=== PATIENT | female | born 1940 | race Caucasian/White ===

== ENCOUNTER → 2016-06-11 | Outpatient (CLI) | payer MEDICARE, OTHER ==
--- NOTE | 2016-06-12 08:01 | US ---
Study: Arterial doppler sonogram of the bilateral lower extremities. Indication: PAD Technique: Sonographic evaluation of the bilateral lower extremity arteries performed. Findings: Arterial waveforms are multiphasic throughout the bilateral lower extremity arteries with the exception of the bilateral dorsalis pedis arteries which are monophasic. No occluded segments. No elevated peak systolic flow velocities. Scattered mild obstructive disease. Impression: Scattered atherosclerosis disease bilateral lower arteries with monophasic dampened waveforms in the bilateral dorsalis pedis arteries. Electronically signed by: Gray Reeves MD 06/12/2016 8:00 AM [employer]
== END ==
LOC: RAD 15:13
PROVIDERS: ATTEND Family Medicine
DX: I73.9 Peripheral vascular disease, unspecified (principal); D51.3 Other dietary vitamin B12 deficiency anemia; E55.9 Vitamin D deficiency, unspecified

== ENCOUNTER 2016-09-07 00:09 | Observation (INO) | payer MEDICARE, OTHER ==
[2016-09-07] MEDS ORDERED: SODIUM CHLORIDE 0.9% 1000ML 1,000 ML IVS ONE ×2 (00:15→01:06)
--- NOTE | 2016-09-07 00:17 | ED.PDOC ---
History of Present Illness - General Chief Complaint: Syncope/Near Syncope Stated Complaint: Diarrhea and syncope Time Seen by Provider: 09/07/16 00:13 Source: patient, RN notes reviewed, Vital Signs reviewed Additional Information: Diarrhea x several days. When trying to get up from toilet she became dizzy and passed out, injuring her R ankle. EMS called to assess patient. Patient initially wanted to refuse care but when she was stood up she became syncopal and improved only with supine positioning and IV fluids. Pt in mild distress on presentation to ER due to right ankle fracture. Otherwise the only significant finding was a pale complexion and flat affect. - History of Present Illness Precipitating Factors: lightheadedness Context: standing Loss of Consciousness: brief (seconds) Current Symptoms: back to normal Allergies/Adverse Reactions: Allergies Diazepam [From Valium] Allergy (Verified 09/07/16 00:53) Home Medications: Ambulatory Orders Alprazolam [Alprazolam ER] 1 mg PO BEDTIME 11/12/14 Esomeprazole Magnesium [Nexium] 40 mg PO DAILY 11/12/14 Fluoxetine HCl [Prozac] 60 mg PO DAILY 11/12/14 Alprazolam [Alprazolam ER] 0.5 mg PO DAILY 09/07/16 Probiotic Product [Probiotic] 1 tab PO DAILY 09/07/16 tiZANidine [Zanaflex] 8 mg PO BEDTIME 09/07/16 traZODone HCL [Desyrel] 50 mg PO BEDTIME 09/07/16 Review of Systems - Review of Systems Constitutional: States: see HPI, weakness EENTM: States: no symptoms reported Respiratory: States: no symptoms reported Cardiology: States: no symptoms reported Gastrointestinal/Abdominal: States: no symptoms reported Genitourinary: States: no symptoms reported Musculoskeletal: States: see HPI, joint pain, joint swelling Skin: States: no symptoms reported Neurological: States: see HPI Endocrine: States: no symptoms reported Hematologic/Lymphatic: States: no symptoms reported Past Medical History (General) - Patient Medical History Hx Stroke: No Hx Congestive Heart Failure: No Hx Diabetes: No Hx Gastroesophageal Reflux: Yes - Hiatal hernia Hx Cancer: Yes - R breast Hx MRSA: No - Vaccination History Hx Influenza Vaccination: No Hx Pneumococcal Vaccination: Yes - 2013 - Social History Hx Tobacco Use: No Hx Alcohol Use: Yes - wine, on occassion. Hx Substance Use: No Hx Substance Use Treatment: No Hx Depression: Yes - prozac Physical Exam - Physical Exam General Appearance: Frail, No apparent distress - at rest Eyes, Ears, Nose, Throat Exam: PERRL/EOMI, normal ENT inspection Neck: non-tender, full range of motion, supple Cardiovascular/Respiratory: normal peripheral pulses, bradycardia Gastrointestinal/Abdominal: normal bowel sounds, non tender, soft Extremity: swelling - and bruising of right ankle/distal lower extremity Mental Status: alert, oriented x 3, depressed affect teaching specialists Exam: normal hearing, normal speech Motor/Sensory: no motor deficit, no sensory deficit Skin Exam: normal color Lymphatic: no adenopathy Progress - Progress Progress: 09/07/16 02:29 Pt with closed right ankle bimaleolar fracture (minimally displaced). This was splinted in place without difficulty. Pt being treated with IV fluids for dehydration. Case discussed with Hospitalist who agrees with need for admission/ observation for 24 to 48 hours given difficulties with mobility and fluid/ electrolyte balance contributing to syncope/near-syncope. Right Ankle X-Ray: IMPRESSION: Bimalleolar fracture with mild lateral displacement of the fracture fragments and associated soft tissue swelling Some irregularity of the posterior malleolus which may reflect associated posterior malleolar fracture which appears nondisplaced - Results/Orders Results/Orders: 09/07/16 01:19 Splint PRN Laboratory Results - last 24 hr 09/07/16 09/07/16 09/07/16 00:30 00:30 00:30 WBC 4.5 L RBC 3.97 L Hgb 11.5 L Hct 35.0 L MCV 88.0 MCH 28.9 MCHC 33.0 RDW 13.4 Plt Count 179 MPV 7.8 Absolute Neuts (auto) 2.20 Absolute Lymphs (auto) 1.70 Absolute Monos (auto) 0.50 Absolute Eos (auto) 0.10 Absolute Basos (auto) 0.00 Neutrophils % 48.6 Lymphocytes % 37.6 Monocytes % 11.8 H Eosinophils % 1.4 Basophils % 0.6 Sodium 125 L Potassium 3.1 L Chloride 97 L Carbon Dioxide 21 Anion Gap 10.1 L BUN < 5 L Creatinine 0.73 BUN/Creatinine Ratio 6.8 L Random Glucose 131 H Serum Osmolality 249.5 L* Calcium 7.9 L Phosphorus Magnesium Iron 57 TIBC 218.4 L Iron Saturation 26.00 Ferritin 126.4 Total Bilirubin 0.5 AST 18 ALT 12 Alkaline Phosphatase 59 Creatine Kinase CK-MB (CK-2) CK-MB (CK-2) % Troponin I B-Natriuretic Peptide Serum Total Protein 5.3 L Albumin 3.0 L Globulin 2.3 Albumin/Globulin Ratio 1.3 09/07/16 00:30 WBC RBC Hgb Hct MCV MCH MCHC RDW Plt Count MPV Absolute Neuts (auto) Absolute Lymphs (auto) Absolute Monos (auto) Absolute Eos (auto) Absolute Basos (auto) Neutrophils % Lymphocytes % Monocytes % Eosinophils % Basophils % Sodium Potassium Chloride Carbon Dioxide Anion Gap BUN Creatinine BUN/Creatinine Ratio Random Glucose Serum Osmolality Calcium Phosphorus 2.9 Magnesium 1.5 L Iron TIBC Iron Saturation Ferritin Total Bilirubin AST ALT Alkaline Phosphatase Creatine Kinase 66 CK-MB (CK-2) 1.3 CK-MB (CK-2) % Not Reportable Troponin I < 0.02 B-Natriuretic Peptide 89.1 Serum Total Protein Albumin Globulin Albumin/Globulin Ratio 09/07/16 09/07/16 00:15 01:19 Temperature 98.2 F Pulse Rate [R 54 L 56 L Arm] Respiratory 20 20 Rate Blood Pressure 118/58 133/77 [R Arm] O2 Sat by Pulse 99 100 Oximetry - EKG/XRAY/CT EKG: [place], Sinus XRAY: leg - see above for impression Departure - Departure Clinical Impression: Ankle fracture, right, Syncope, near, Dehydration Time of Disposition: 02:36 Disposition: Admit Patient Condition: Fair Referrals: Blanco Medina III, MD [Primary Care Provider] - 1-2 Weeks Home Medications: Ambulatory Orders Alprazolam [Alprazolam ER] 1 mg PO BEDTIME 11/12/14 Esomeprazole Magnesium [Nexium] 40 mg PO DAILY 11/12/14 Fluoxetine HCl [Prozac] 60 mg PO DAILY 11/12/14 Alprazolam [Alprazolam ER] 0.5 mg PO DAILY 09/07/16 Probiotic Product [Probiotic] 1 tab PO DAILY 09/07/16 tiZANidine [Zanaflex] 8 mg PO BEDTIME 09/07/16 traZODone HCL [Desyrel] 50 mg PO BEDTIME 09/07/16 Decision To Admit - Decistion To Admit Decision to Admit Reason: Medical Nature - dehydration, right ankle fracture, near syncope Decision to Admit Date: 09/07/16 Decision to Admit Time: 02:28
--- NOTE | 2016-09-07 00:49 | RAD ---
EXAM DESCRIPTION: Ankle, right 3 Views CLINICAL HISTORY: 75 years Female ,fall injury COMPARISON: None. TECHNIQUE: 3 view FINDINGS: There is a fracture of the medial malleolus. Comminuted fracture of the distal fibular diaphysis. There is mild lateral displacement of the talus and the medial malleolar fracture fragment with respect to the ankle mortise. There is soft tissue swelling around the ankle. No significant ankle effusion. Small amount of irregularity also present along the posterior malleolus which may reflect a nondisplaced posterior malleolar fracture. IMPRESSION: Bimalleolar fracture with mild lateral displacement of the fracture fragments and associated soft tissue swelling Some irregularity of the posterior malleolus which may reflect associated posterior malleolar fracture which appears nondisplaced Electronically signed by: Margaret Negrete 09/07/2016 12:49 AM CDT
[2016-09-07] MEDS ORDERED: ONDANSETRON INJ 4 MG/2 ML VIAL IV ONE (01:19)
[2016-09-07] MEDS ORDERED: HYDROmorphone HCL INJ 2 MG/ML VIAL IV ONE (01:19)
--- NOTE | 2016-09-07 02:51 | HP ---
SUPERVISING PHYSICIAN: Alexy Hinds M.D. CHIEF COMPLAINT: Right ankle pain. HISTORY OF PRESENT ILLNESS: Ms. Carver is a 75 year-old female patient that noted that she has had several days of diarrhea which is her normal bowel habits as she gets constipated then has diarrhea. On date of admission prior to arrival to the Emergency Department, she became dizzy from getting up from the toilet, passed out and twisted her ankle. EMS was notified and transported the patient to the hospital. Initially on the scene, the patient wanted to refuse care but when she stood up she became syncopal. In the Emergency Department, the right ankle was x-rayed and per radiology interpretation showed a bimalleolar fracture with mild lateral displacement of the fracture fragments and associated soft tissue swelling with some irregularity of the posterior malleolus which may reflect associated posterior malleolar fracture which appears to be nondisplaced. Laboratory studies in the Emergency Department showed she had a white count of 4.5, hemoglobin 11.5, hematocrit 35.5. Chemistries showed a low sodium of 125 with potassium 3.1. Kidney function was within normal limits. Liver function was within normal limits. Based off her findings on radiographic studies for a right ankle fracture, it was unstable. The patient is to be admitted now for orthopedic consultation. The patient was admitted to the Medical/Surgical floor in stable condition. PAST MEDICAL HISTORY: 1. Diverticulosis. 2. Gastroesophageal reflux disease. 3. Osteoporosis. 4. Chronic neck and back pain. 5. History of greater trochanter bursitis. 6. Breast cancer status post radiation therapy also with a right breast lumpectomy. 7. Generalized anxiety disorder, on Xanax. 8. Major depression, on Prozac. 9. Recently diagnosed with a heart murmur with echocardiogram in August 2016 with ejection fraction of 65% with a grade 1 diastolic dysfunction. PAST SURGICAL HISTORY: 1. Appendectomy. 2. Tonsillectomy. 3. L4 vertebral compression fracture status post kyphoplasty on 11/2006. 4. Right breast lumpectomy. 5. Tubal ligation. 6. Left breast biopsy for bloody nipple discharge found to be benign. 7. Laparoscopic repair of 3 hiatal hernias. 8. Dorys fundoplication. CURRENT MEDICATIONS: 1. Xanax 1 mg at bedtime. 2. Xanax 0.5 mg daily. 3. Probiotic 1 tablet daily. 4. Zanaflex 8 mg at bedtime. 5. Desyrel 50 mg at bedtime. 6. Nexium 40 mg daily. 7. Prozac 60 mg daily. ALLERGIES: DIAZEPAM. FAMILY HISTORY: Father at age 54 secondary to a myocardial infarction. Mother with problems from history and physical and osteoarthritis. SOCIAL HISTORY: Patient is retired, is , lives in [place]. They live in an RV behind their children's house. She denies ever drinking alcohol or ever smoking. REVIEW OF SYSTEMS: CONSTITUTIONAL: Denies any fevers, chills or unexplained weight loss or weight gain. HEENT: No significant complaints of nasal congestion, sore throat or earaches. CARDIOVASCULAR: Denies chest pain or palpitations; near syncopal episode as noted in history of present illness. RESPIRATORY: Denies cough, chest pain, palpitations. GASTROINTESTINAL: Does have history of problem with chronic constipation and then diarrhea which has been going on for many years. Denies abdominal pains.. EXTREMITIES: As noted in history of present illness. Pain in the right ankle secondary to a fracture. NEUROLOGICAL: Denies any neurological deficits or headaches. PHYSICAL EXAMINATION: VITAL SIGNS: Temperature 98.2, pulse 71, blood pressure 135/59, respirations 18, saturation 95% on room air. Admission weight 80.1 kilograms. GENERAL: The patient is well-developed, well groomed and appears fairly comfortable. He has a splint in place to the right ankle and has just recently had pain medications. HEENT: Tympanic membranes are clear bilaterally. Oropharynx is pink, moist without any lesions. NECK: Supple, non-tender, full range of motion. No jugular venous distention. CHEST: Lungs are clear to auscultation bilaterally without any rhonchi, rales , or wheezes. CARDIOVASCULAR: Regular rate and rhythm with a systolic murmur noted, grade 1/ 6 with no rubs or gallops. ABDOMEN: Soft, non-tender, positive bowel sounds. EXTREMITIES: Right ankle has a splint in place, pulse is strong. There is minimal swelling. There is some bruising noted to the right ankle and distal lower extremity, otherwise left is urinalysis. No cyanosis, clubbing, or edema. NEUROLOGIC: She is awake, alert, and oriented x3. Facial features are symmetrical. Extraocular movements are within normal limits.There is no nystagmus, there is no notable localizing neurodeficits. LABORATORY: CBC on admission showed a white count of 4.5 with hemoglobin of 11.5, hematocrit 35.0. Platelet count 179,000. Initial chemistries showed a sodium of 125 with potassium 3.1, BUN less than 5, creatinine 0.73, glucose 131 , calcium 7.9, phosphorus 2.9, magnesium 1.5. Liver functions showed to be within normal limits. Iron studies showed a normal iron at 57 with iron saturation of 26 which is normal. TIBC was low at 318, ferritin normal at 126. Cardiac enzymes showed a troponin less than 0.02 with normal CPK of 66. Magnesium 1.5. Urinalysis is pending. RADIOLOGY: Chest x-ray pending. X-ray of the right ankle per radiology interpretation shows bimalleolar fracture with mild lateral displacement of the fracture fragments especially with soft tissue swelling with some irregularities of the posterior malleus which may reflect associated posterior malleolar fracture. CT of the lumbar, thoracic and cervical spine pending. ASSESSMENT: 1. Right bimalleolar fracture with mild labral displacement requiring surgical repair secondary to a same level fall. 2. Hyponatremia likely contributing to fall resulting in ankle fracture. 3. Gastroesophageal reflux disease. 4. History of diverticulosis without concerns for diverticulitis. 5. Chronic neck and back pain. 6. Generalized anxiety disorder with major depression on medication. PLAN: The patient is to be admitted to the medical/surgical floor for a consultation with Dr. Crain for orthopedic services in the morning. She was splinted in the Emergency Department and will keep her leg elevated. We will provide her with pain medication as needed. She will be made n.p.o. in anticipation of surgery something this morning or later this afternoon pending Dr. Laura consultation. We will continue her home medications postoperatively and anticipate length of stay to be 1 to 2 days. Until discharge, we will continue to low-flow patient closely and treat appropriately. Once the patient is postsurgical, she will be followed medically along with orthopedic surgeon and physical therapy with discharge planning initiated. The patient will be non weightbearing for at least 3 months and currently lives in an requiring 3 steps to get into her home, therefore, arrangements will be needed to assist her once she is discharged home so she can safely prevent additional falls. Once she is discharged, she will need close followup with both Dr. Crain and Dr. Medina, her primary care physician. #[id number] [facility]
[2016-09-07] MEDS ORDERED: MORPHINE SULFATE INJ 10 MG/ML VIAL IV PRN (05:21)
[2016-09-07] MEDS: SODIUM CHLORIDE 0.9% 1000ML 1,000 ML IVS PRN (05:47)
[2016-09-07] MEDS ORDERED: SODIUM CHLORIDE 0.9% (FLUSH) 10 ML SYG IV PRN ×2 (07:50→10:06)
[2016-09-07] MEDS ORDERED: IV SET AND CAP CHANGE INJ INJ SCH ×2 (08:00→10:30)
[2016-09-07] MEDS ORDERED: VANCOMYCIN HCL INJ 1,000 MG in SODIUM CHLORIDE 0.9% 250ML 250 ML IVPB ONE (12:13)
--- NOTE | 2016-09-07 12:22 | CT ---
EXAM: THORACIC SPINE CT INDICATION: Fall with back pain Total radiation dose: 1887.38 mGy TECHNIQUE: Contiguous axial images of the thoracic spine are obtained. Computer reformatted coronal and sagittal images are also provided. FINDINGS: There is significant respiratory motion artifact over the lower thoracic spine. There is no evidence of fracture or subluxation. Alignment is normal. Vertebral height and integrity is normal. Intervertebral disk height is maintained. There are mild degenerative changes. No focal disk pathology is evident. No central canal or neural foraminal stenosis is identified. The paraspinous soft tissues are unremarkable. Incidentally noted are small bilateral pleural effusions. Mild patchy bilateral lower lobe opacities may be atelectatic or inflammatory. Biapical fibrosis. IMPRESSION: No acute osseous abnormality in the thoracic spine. Electronically signed by: Deshawn Valdovinos MD 09/07/2016 12:22 PM CDT
[2016-09-07] MEDS ORDERED: ceFAZolin SODIUM 2 GM in SODIUM CHLORIDE 0.9% 100ML 100 ML IVPB SCH (12:30)
--- NOTE | 2016-09-07 12:33 | CT ---
EXAMINATION: Cervical spine CT. 09/07/2016 10:29 AM CDT INDICATION: MAIN COMPARISON:Cervical spine MRI 08/11/2011 TECHNIQUE: Multiple axial images of the cervical spine were obtained. Sagittal and coronal reconstructions are provided. Total radiation dose: DLP 310.19 mGy-cm. FINDINGS: There is no evidence of fracture or dislocation. Cervical spine alignment is normal. The prevertebral soft tissues are normal. Multilevel degenerative changes appear relatively unchanged. Spinal cord, disc related, ligamentous or vascular injuries cannot be excluded on the basis of this examination. IMPRESSION: 1. No fracture or dislocation of the cervical spine. Multilevel degenerative changes. Electronically signed by: Deshawn Valdovinos MD 09/07/2016 12:34 PM CDT
--- NOTE | 2016-09-07 12:43 | CT ---
EXAM: LUMBAR SPINE CT INDICATION: Fall with back pain Total radiation dose: 1290.84 mGy TECHNIQUE: Contiguous axial images of the lumbar spine are obtained. Computer reformatted coronal and sagittal images are also provided. Axial images are available in both bone and soft tissue algorithm. FINDINGS: There is no evidence of fracture or subluxation. Alignment is normal. Vertebral height and integrity is normal. There is superior and plate compression deformity with vertebroplasty of L4. There is a small posterior disc ossified complex indenting upon the spinal canal. Degenerative changes at L5-S1 with vacuum phenomenon. This is unchanged since 2007. Mild atherosclerosis of the thoracic aorta. The paraspinous soft tissues are unremarkable. IMPRESSION: No acute osseous abnormality in the lumbar spine. Electronically signed by: Deshawn Valdovinos MD 09/07/2016 12:44 PM CDT
[2016-09-07] MEDS ORDERED: SODIUM CHLORIDE 0.9% 250ML 250 ML ONE (12:55)
[2016-09-07] MEDS ORDERED: ceFAZolin SODIUM 1 GM VIAL ONE ×2 (12:55→20:41)
[2016-09-07] MEDS ORDERED: VANCOMYCIN HCL INJ 1,000 MG VIAL IVPB ONE (12:55)
[2016-09-07] MEDS ORDERED: SODIUM CHLORIDE 0.9% 100ML 100 ML IVPB ONE ×2 (12:55→20:40)
--- NOTE | 2016-09-07 12:55 | CT ---
EXAM: CT PELVIS WITHOUT CONTRAST DATE: 09/07/2016 10:29 AM CDT INDICATION: Fall ADDITIONAL INFORMATION: None. COMPARISON: Pelvic x-ray 08/22/2011, CT abdomen pelvis 02/18/2008 TECHNIQUE: CT acquisition of the pelvis without the intravenous administration contrast was performed. Coronal and sagittal reconstructions were performed. Oral contrast was also None. Total radiation dose DLP: 563.67 mGy-cm FINDINGS: Bladder: Distended without wall thickening. Reproductive organs: Uterus is is unremarkable Gastrointestinal tract: Visualized bowel appears normal in caliber. Peritoneum and retroperitoneum: No ascites or free air. No other fluid collection. Lymph nodes: Normal. Bones: Mild degenerative changes. Soft tissues: Normal. IMPRESSION: No acute pelvic abnormality. Electronically signed by: Deshawn Valdovinos MD 09/07/2016 12:55 PM CDT
--- NOTE | 2016-09-07 13:11 | RAD ---
SINGLE VIEW CHEST X-RAY. 09/07/2016 12:13 PM CDT INDICATION: MAIN TECHNIQUE: Single frontal view of the chest was performed. COMPARISON: Chest x-ray 04/06/2010 FINDINGS: Probable mild COPD. Otherwise lungs are clear without consolidation. There are no effusions. No evidence of pneumothorax. The cardiomediastinal silhouette is stable. Osseous structures are unchanged. The visualized abdomen is unremarkable. IMPRESSION: Mild COPD. Otherwise, no radiographic evidence of cardiopulmonary disease. Electronically signed by: Deshawn Valdovinos MD 09/07/2016 1:11 PM CDT
[2016-09-07] MEDS ORDERED: PANTOPRAZOLE INJECTION 40 MG in SODIUM CHLORIDE 0.9% 100ML 100 ML IVPB ONE (13:34)
[2016-09-07] MEDS ORDERED: PANTOPRAZOLE SODIUM IV 40 MG VIAL ONE (13:50)
[2016-09-07] MEDS ORDERED: SODIUM CHL 0.9% 100ML MINI-BAG 100 ML IVPB ONE (13:51)
[2016-09-07] MEDS ORDERED: MORPHINE SULFATE INJ 10 MG/ML VIAL IV ONE (14:00)
[2016-09-07] MEDS ORDERED: SODIUM CHLORIDE 0.9% 50 ML VIAL INJ ONE (14:00)
[2016-09-07] MEDS ORDERED: METOCLOPRAMIDE HCL INJ 10 MG/2 ML VIAL IV ONE (14:00)
[2016-09-07] MEDS ORDERED: ceFAZolin SODIUM 1 GM in SODIUM CHL 0.9% 50ML MIN-BAG+ 50 ML IVPB ONE (14:00)
[2016-09-07] MEDS ORDERED: raNITIdine HCL INJ 25 MG/ML VIAL IV ONE (14:00)
[2016-09-07] MEDS ORDERED: LIDOCAINE 1% 10 ML VIAL INJ ONE (14:00)
[2016-09-07] MEDS ORDERED: ROCURONIUM BROMIDE 10 MG/ML VIAL IV ONE (14:00)
[2016-09-07] MEDS ORDERED: KETOROLAC TROMETHAMINE INJ 30 MG/ML VIAL IV ONE (14:00)
[2016-09-07] MEDS ORDERED: PROPOFOL 200 MG/20 ML VIAL IV ONE (14:00)
[2016-09-07] MEDS ORDERED: DEXAMETHASONE INJ 10 MG/ML VIAL IV ONE (14:00)
[2016-09-07] MEDS ORDERED: ACETAMINOPHEN IV 1000MG 100 ML ONE (14:49)
[2016-09-07] MEDS: VANCOMYCIN HCL INJ 1,000 MG VIAL IVPB ONE ×2 (14:58→16:11)
[2016-09-07] MEDS: ceFAZolin SODIUM 1 GM VIAL ONE ×2 (14:58→16:11)
[2016-09-07] MEDS: BUPIVACAINE 0.25% W/EPI 50 ML VIAL INJ ONE ×2 (15:00→16:46)
[2016-09-07] MEDS ORDERED: SUGAMMADEX SODIUM 200 MG/2 ML VIAL IV ONE (15:28)
[2016-09-07] MEDS ORDERED: ELECTROLYTE-A 1,000 ML IVS ONE (15:58)
[2016-09-07] MEDS ORDERED: MORPHINE SULFATE INJ 10 MG/ML VIAL ONE (16:09)
--- NOTE | 2016-09-07 16:56 | OP ---
DATE OF PROCEDURE: 09/07/16 PREOPERATIVE DIAGNOSIS: 1. Right ankle fracture. POSTOPERATIVE DIAGNOSIS: 1. Right ankle fracture. PROCEDURE: 1. Open reduction and internal fixation of right ankle. SURGEON: Jason Crain M.D. [employer]: Dc Wilson CST, -Artemio. ANESTHESIA: General anesthesia. COMPLICATIONS: None. FINDINGS: Bimalleolar ankle fracture and osteoporotic bone. INDICATION FOR PROCEDURE: Ms. Carver has a history of a fall on the day of presentation to the Emergency Room. Ms. Carver had had the acute onset of pain and x-rays revealed a fracture of the ankle. She was splinted and admitted for definitive therapy. After discussing the risks, benefits, and alternatives to operative therapy with the family, informed consent was obtained for open reduction and internal fixation. DESCRIPTION OF PROCEDURE: The patient was brought to the Operating Room and placed in the supine position. General anesthesia was induced. The patient was sterilely prepped and draped. Following prepping and draping, an incision was made in line with the fibula. The superficial peroneal nerve was identified and protected. The fracture was identified and the hematoma was cleared. Provisional induction was achieved with fluoroscopic imaging guidance. A plate was applied to the lateral aspect of the fibula and screw lengths were checked using imaging. Following the imaging after reduction, attention was focused on the medial malleolus. An incision was made directly overlying the medial malleolus and dissection was carried down to the fracture site. Following identification of the fracture, a clamp was used to hold it reduced. Two K-wires were used to maintain the reduction while two cannulated screws were placed from distal to proximal. The length of the K-wires was measured two 50 mm screws were placed to hold the fracture in place. Following that, the ankle was stressed under fluoroscopic imaging. There was no motion at the mortise and there was no widening or motion at the fracture sites. The wound was very thoroughly irrigated. The tissues were closed over the plate and the skin was close with a combination of running and interrupted subcuticular stitches. Sterile dressings were placed. The splint was placed and the patient was awakened from anesthesia. She was taken to the recovery room. POSTOPERATIVE: She is going to be nonweightbearing until we begin to see consolidation on x-rays. #[id number] [facility]
--- NOTE | 2016-09-07 17:31 | RAD ---
EXAM DESCRIPTION: Ankle,Right 3 Views CLINICAL HISTORY: 75 years Female ,post op COMPARISON: 09/07/2016. TECHNIQUE: 3 view FINDINGS: Overlying cast material obscures fine bony detail. There has been plate and screw fixation of the distal fibular fracture with anatomic alignment. 2. Cancellous partially threaded cannulated screws transfix the medial malleolar fracture. Alignment at the ankle is anatomic. Minimal cortical irregularity along the posterior aspect of the posterior malleolus again noted. Soft tissue swelling is present. No ankle joint effusion noted. IMPRESSION: ORIF of bimalleolar fracture with soft tissue swelling. Alignment is anatomic Minimal cortical irregularity along the posterior malleolus could reflect nondisplaced fracture Electronically signed by: Margaret Negrete 09/07/2016 5:30 PM CDT
[2016-09-07] MEDS ORDERED: ALPRAZolam 0.5 MG TAB PO SCH (21:00)
[2016-09-07] MEDS ORDERED: tiZANidine 4 MG TAB PO SCH (21:00)
[2016-09-07] MEDS ORDERED: traZODone HCL 50 MG TAB PO SCH (21:00)
--- NOTE | 2016-09-07 21:31 | PCM.CORE ---
Physician DVT/VTE - Nurse DVT Assessment & Total Each Risk Factor Represents 2 Points: Age 60-74, Confined to bed >72 hours Each Risk Factor Represents 1 Point: Medical PT at Bed Rest DVT Assessment Score: 5 - 5 or more Very High Risk Treatments: Early Ambulation * - non wt bearing on right leg, Sequential Compression Device - left leg only Pharmacological: Enoxaparin 40mg SQ Daily
[2016-09-07] MEDS: ceFAZolin SODIUM 2 GM in SODIUM CHL 0.9% 100ML MINI-BAG 100 ML IVPB SCH (21:48)
[2016-09-08] MEDS: SODIUM CHLORIDE 0.9% 1000ML 1,000 ML IVS PRN (01:36)
[2016-09-08] MEDS ORDERED: SODIUM CHL 0.9% 100ML MINI-BAG 100 ML IVPB ONE ×2 (05:49→07:50)
[2016-09-08] MEDS ORDERED: ceFAZolin SODIUM 1 GM VIAL ONE ×2 (05:49→07:51)
[2016-09-08] MEDS: ceFAZolin SODIUM 2 GM in SODIUM CHL 0.9% 100ML MINI-BAG 100 ML IVPB SCH ×2 (05:52→13:25)
[2016-09-08] MEDS ORDERED: PANTOPRAZOLE SODIUM TAB 40 MG PO SCH (06:30)
[2016-09-08] MEDS ORDERED: BIFIDOBACTERIUM INFANTIS 4 MG CAP ONE (07:49)
[2016-09-08] MEDS ORDERED: FLUoxetine HCL 20 MG CAP ONE (07:50)
[2016-09-08] MEDS ORDERED: ENOXAPARIN SODIUM 40 MG/0.4 ML SYG SUBCU SCH (09:00)
[2016-09-08] MEDS ORDERED: FLUoxetine HCL 20 MG CAP PO SCH (09:00)
[2016-09-08] MEDS ORDERED: ALPRAZolam 0.5 MG TAB PO SCH ×2 (09:00)
[2016-09-08] MEDS ORDERED: BIFIDOBACTERIUM INFANTIS 4 MG CAP PO SCH (09:00)
--- NOTE | 2016-09-08 13:05 | PN ---
DATE: 09/08/16 SUBJECTIVE: Ms. Carver is doing really well today. She has no pain at all right now. OBJECTIVE: Afebrile. Vital signs stable. Dressing is clean, dry, and intact. She has full sensation in the ankle and foot. She has minimal swelling. ASSESSMENT: Status post open reduction and internal fixation of the ankle. PLAN: The plan at this point is for her to continue with [id number] status. We are going to keep her that way until we see some evidence of healing and then progress her weight-bearing at that point. #[id number] [facility]
[2016-09-08 15:11] VITALS: BP 131/72; TEMP 97
[2016-09-08] MEDS ORDERED: SODIUM CHLORIDE 0.9% (FLUSH) 10 ML SYG IV SCH (15:15)
[2016-09-08] MEDS ORDERED: ACETAMINOPHEN W/COD #3 TAB 1 EA TAB PO PRN (16:23)
[2016-09-08 16:57] VITALS: O2SAT 98
== END 2016-09-08 18:25 ==
LOC: ER 00:09 → MS 02:50
PROVIDERS: ADMIT Nurse Practitioner Family; ATTEND Nurse Practitioner Family
DX: S82.841A Displaced bimalleolar fracture of right lower leg, initial encounter for closed fracture (principal); E87.1 Hypo-osmolality and hyponatremia; K21.9 Gastro-esophageal reflux disease without esophagitis; K57.30 Diverticulosis of large intestine without perforation or abscess without bleeding; G89.29 Other chronic pain; M54.2 Cervicalgia; M54.5 Low back pain; M54.6 Pain in thoracic spine; F41.1 Generalized anxiety disorder; F32.9 Major depressive disorder, single episode, unspecified; E86.0 Dehydration; R19.7 Diarrhea, unspecified; R55 Syncope and collapse; M81.0 Age-related osteoporosis without current pathological fracture; J44.9 Chronic obstructive pulmonary disease, unspecified; W18.11XA Fall from or off toilet without subsequent striking against object, initial encounter; Y93.89 Activity, other specified; Y92.091 Bathroom in other non-institutional residence as the place of occurrence of the external cause; Z79.899 Other long term (current) drug therapy; Z88.8 Allergy status to other drugs, medicaments and biological substances; Z90.49 Acquired absence of other specified parts of digestive tract; Z82.49 Family history of ischemic heart disease and other diseases of the circulatory system; Z82.61 Family history of arthritis
CPT/HCPCS: 01480; 27814; 29515; 36415 ×4; 71010; 72125; 72128; 72131; 72192; 73610 ×2; 76000; 80048; 80053; 82550; 82553; 82728; 83540; 83550; 83735; 83880; 84100; 84484; 85025 ×2; 85610; 85730; 86850; 86900; 86901; 86922; 93005 ×2; 94760 ×3; 96361; 96365; 96366; 96372; 96375 ×2; 96376; 97116; 97162; 99284; A4216; C1713 ×4; C1769; G0378; G8978; G8979; J0690 ×5; J1100; J1170; J1650; J1885; J2270 ×3; J2405; J2765; J2780; J3370 ×2; J3490; J7030 ×4; J7050 ×6

== ENCOUNTER 2016-09-29 17:26 | Observation (INO) | payer MEDICARE, OTHER ==
[2016-09-29] MEDS ORDERED: CIPROFLOXACIN 500 MG TAB PO ONE (20:11)
[2016-09-29] MEDS ORDERED: cefTRIAXone SODIUM 1 GM in SODIUM CHL 0.9% 50ML MIN-BAG+ 50 ML IVPB ONE (20:11)
[2016-09-29] MEDS ORDERED: SODIUM CHLORIDE 0.9% 1000ML 1,000 ML IVS ONE (20:11)
[2016-09-29] MEDS ORDERED: TEMAZEPAM 15 MG CAP PO ONE (20:12)
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
[2016-09-29] MEDS ORDERED: cefTRIAXone SODIUM 1 GM VIAL ONE (21:11)
[2016-09-29] MEDS ORDERED: SODIUM CHL 0.9% 50ML MIN-BAG+ 50 ML IVPB ONE (21:11)
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
[2016-09-29] MEDS ORDERED: SODIUM CHLORIDE 0.9% (FLUSH) 10 ML SYG IV PRN (23:36)
[2016-09-29] MEDS ORDERED: MAGNESIUM HYDROXIDE 30 ML UD PO PRN (23:39)
[2016-09-29] MEDS ORDERED: ALUM & MAG HYDROX-SIMETHICONE 30 ML UD PO PRN (23:39)
[2016-09-29] MEDS ORDERED: ACETAMINOPHEN 325 MG TAB PO PRN (23:39)
[2016-09-29] MEDS ORDERED: IV SET AND CAP CHANGE INJ INJ SCH (23:45)
[2016-09-29] MEDS ORDERED: TEMAZEPAM 15 MG CAP ONE (23:53)
[2016-09-30] MEDS ORDERED: cefTRIAXone SODIUM 1 GM VIAL ONE (08:08)
[2016-09-30] MEDS ORDERED: SODIUM CHL 0.9% 50ML MIN-BAG+ 50 ML IVPB ONE (08:08)
[2016-09-30] MEDS ORDERED: cefTRIAXone SODIUM 1 GM in SODIUM CHL 0.9% 50ML MIN-BAG+ 50 ML IVPB SCH (09:00)
[2016-09-30] MEDS ORDERED: NON-FORMULARY MEDICATION 1 EA MIS (Esomeprazole Magnesium [Nexium] 40 MG) PO SCH (09:00)
[2016-09-30] MEDS ORDERED: FLUoxetine HCL 20 MG CAP PO SCH (09:00)
[2016-09-30] MEDS ORDERED: OMEPRAZOLE CAP 20 MG CAP PO SCH (09:00)
[2016-09-30] MEDS ORDERED: ALPRAZolam 0.5 MG TAB PO SCH ×2 (09:00→21:00)
[2016-09-30 15:11] VITALS: BP 140/84; TEMP 98.3; O2SAT 95
--- NOTE | 2016-09-30 16:30 | CT ---
EXAM DESCRIPTION: CT head without contrast CLINICAL HISTORY: Altered mental status. COMPARISON: None available TECHNIQUE: Multiple axial images of the head were obtained without the use of intravenous contrast. This exam was performed according to our departmental dose-optimization program, which includes automated exposure control, adjustment of the mA and/or kV according to patient size and/or use of iterative reconstruction technique. FINDINGS: No CT evidence of acute intracranial hemorrhage, mass effect, or acute cortical infarction. Midline structures are nondisplaced. Sulcation pattern and ventricular systems are within normal limits. Pagan-white differentiation is maintained. Basal cisterns are preserved. There are no abnormal extra-axial fluid collections. No depressed skull fractures. The visualized paranasal sinuses and the mastoids are clear. IMPRESSION: No CT evidence of an acute intracranial abnormality. Electronically signed by: Blanco Pelaez MD 09/30/2016 4:28 PM CDT
[2016-09-30] MEDS ORDERED: traZODone HCL 50 MG TAB PO SCH (21:00)
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
== END 2016-09-30 17:59 ==
LOC: ER 17:26 → MS 22:43
PROVIDERS: ADMIT Nurse Practitioner Family; ATTEND Nurse Practitioner Family
DX: G93.41 Metabolic encephalopathy (principal); N39.0 Urinary tract infection, site not specified; B96.20 Unspecified Escherichia coli [E. coli] as the cause of diseases classified elsewhere; R41.0 Disorientation, unspecified; F32.3 Major depressive disorder, single episode, severe with psychotic features; F41.1 Generalized anxiety disorder; S82.841D Displaced bimalleolar fracture of right lower leg, subsequent encounter for closed fracture with routine healing; X58.XXXD Exposure to other specified factors, subsequent encounter; E86.0 Dehydration; K57.30 Diverticulosis of large intestine without perforation or abscess without bleeding; K21.9 Gastro-esophageal reflux disease without esophagitis; M81.0 Age-related osteoporosis without current pathological fracture; G89.29 Other chronic pain; M54.2 Cervicalgia; M54.9 Dorsalgia, unspecified; R01.1 Cardiac murmur, unspecified; Z79.899 Other long term (current) drug therapy; Z88.8 Allergy status to other drugs, medicaments and biological substances; Z85.3 Personal history of malignant neoplasm of breast; Z92.3 Personal history of irradiation; Z90.49 Acquired absence of other specified parts of digestive tract; Z82.49 Family history of ischemic heart disease and other diseases of the circulatory system; Z82.61 Family history of arthritis
CPT/HCPCS: 36415 ×2; 70450; 80053 ×2; 81001; 82550; 82553; 83735; 84443; 84484; 85025 ×2; 87086; 87088; 87186; 96361; 96365; 96366; 99284; G0378; J0696 ×2; J7030; J7050 ×2

== ENCOUNTER → 2016-10-30 | Outpatient (CLI) | payer MEDICARE, OTHER ==
--- NOTE | 2016-11-02 17:23 | RAD ---
EXAM DESCRIPTION: Ankle,Right 3 Views CLINICAL HISTORY: 75 years, Female, PAIN IN RIGHT ANKLE AND RIGHT JOINTS OF FOOT COMPARISON: September 07, 2016 TECHNIQUE: AP/lateral/oblique of the ankle FINDINGS: Three-view right ankle shows that the patient's cast has been removed since September 07. Medial and lateral instrumentation present. Excellent alignment and position. Ankle mortise shows normal relationship. IMPRESSION: 1. Postop/post fracture changes with no complicating process. Electronically signed by: Dave Felipe MD 11/02/2016 5:21 PM CDT
== END | disposition home or self-care (01) ==
LOC: RAD 08:01
PROVIDERS: ATTEND Orthopaedic Surgery
DX: M25.571 Pain in right ankle and joints of right foot (principal)

== ENCOUNTER → 2016-11-13 | Outpatient (CLI) | payer MEDICARE, OTHER ==
--- NOTE | 2016-11-13 21:15 | RAD ---
EXAM DESCRIPTION: Ankle,Right 3 Views CLINICAL HISTORY: 75 years, Female, FRACTURE COMPARISON: October 30 FINDINGS: Stable alignment of bimalleolar fracture without findings of hardware failure. Minimal if any interval radiographic healing. Some calcification over interosseous membrane above the ankle. Ankle mortise intact. Bones appear demineralized perhaps from disuse. IMPRESSION: Satisfactory appearance bimalleolar fracture with stable alignment and no findings of hardware failure Electronically signed by: Branden Veliz MD 11/13/2016 9:14 PM CDT
== END | disposition home or self-care (01) ==
LOC: RAD 08:35
PROVIDERS: ATTEND Orthopaedic Surgery
DX: S82.90XD Unspecified fracture of unspecified lower leg, subsequent encounter for closed fracture with routine healing (principal)

== ENCOUNTER → 2016-12-15 | Outpatient (CLI) | payer MEDICARE, OTHER ==
--- NOTE | 2016-12-15 11:03 | RAD ---
EXAM DESCRIPTION: Ankle,Right 3 Views CLINICAL HISTORY: 76 years,Female,CLOSED FX OF ANKLE-RIGHT COMPARISON: November 13, 2016 FINDINGS: The right ankle demonstrates bimalleolar fracture fixated with plates and screws. Which is mostly healed and no significant displacement or changes since prior study. Fracture lines are barely remaining.. Ankle mortise and talar dome unremarkable. Soft tissues small joint effusion.. IMPRESSION: Right bimalleolar fracture fixated with sideplate and screws mostly healed and stable. [] Electronically signed by: Blanco Laura MD 12/15/2016 11:02 AM CDT
== END | disposition home or self-care (01) ==
LOC: RAD 08:40
PROVIDERS: ATTEND Orthopaedic Surgery
DX: S82.90XD Unspecified fracture of unspecified lower leg, subsequent encounter for closed fracture with routine healing (principal)

== ENCOUNTER → 2017-02-02 | Outpatient (CLI) | payer MEDICARE, OTHER | END | disposition home or self-care (01) | LOC: GMAL 11:12 | PROVIDERS: ATTEND Family Medicine | DX: R53.82 Chronic fatigue, unspecified (principal) ==

== ENCOUNTER → 2017-07-02 | Outpatient (CLI) | payer MEDICARE | LOC: GMAL 11:45 | PROVIDERS: ATTEND Family Medicine | DX: D51.3 Other dietary vitamin B12 deficiency anemia (principal); E55.9 Vitamin D deficiency, unspecified ==

== ENCOUNTER → 2017-09-08 | Outpatient (CLI) | payer MEDICARE | LOC: GMAL 17:41 | PROVIDERS: ATTEND Family Medicine | DX: R30.0 Dysuria (principal) ==

== ENCOUNTER → 2017-10-06 | Outpatient (CLI) | payer MEDICARE | LOC: GMAL 15:34 | PROVIDERS: ATTEND Family Medicine | DX: N39.0 Urinary tract infection, site not specified (principal) ==

== ENCOUNTER 2018-03-16 08:51 | Observation (INO) | payer MEDICARE ==
[2018-03-16] MEDS ORDERED: SODIUM CHLORIDE 0.9% (FLUSH) 10 ML SYG IV PRN ×2 (09:27→14:40)
[2018-03-16] MEDS ORDERED: ONDANSETRON INJ 4 MG/2 ML VIAL IV ONE (09:27)
[2018-03-16] MEDS ORDERED: SODIUM CHLORIDE 0.9% 1000ML 1,000 ML IVS ONE (09:27)
[2018-03-16] MEDS ORDERED: fentaNYL CITRATE INJ 50 MCG/ML AMP IV ONE (09:28)
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
--- NOTE | 2018-03-16 11:17 | CT ---
EXAM DESCRIPTION: CT abdomen and pelvis with contrast CLINICAL HISTORY: Diffuse abdominal pain. Nausea and vomiting. COMPARISON: 02/18/2008 TECHNIQUE: Spiral CT with multiplanar reformatted images. Intravenous iodinated nonionic contrast This exam was performed according to our departmental dose-optimization program, which includes automated exposure control, adjustment of the mA and/or kV according to patient size and/or use of iterative reconstruction technique. FINDINGS: Minimal pleural fluid in the right lung base with some adjacent atelectasis. Minimal atelectasis in the dependent left lower lobe. No pulmonary edema or focal infiltrate. Partially visualized heart, normal in size. Moderate size sliding-type hiatal hernia No abnormality of the liver or gallbladder. No biliary duct dilation No abnormality of the spleen, pancreas or adrenal glands. Small focus of parenchymal scarring and underlying cyst in the upper lateral left kidney. This was seen on previous study although smaller. No renal mass lesion or renal stone disease No mass lesion or inflammatory process seen in the stomach, small or large intestine. Scattered diverticula of the descending and sigmoid colon without diverticulitis. Normal terminal ileum No diagnostic abnormality of the omentum, mesentery or retroperitoneum Pelvic viscera normal. No mass or adenopathy in the pelvis No acute bony abnormality IMPRESSION: Descending and sigmoid colon diverticulosis without diverticulitis No diagnostic inflammatory process seen in the abdomen or pelvis to explain the patient's current symptoms Hiatal hernia Electronically signed by: Chuckie Sims MD 03/16/2018 11:16 AM UNCRATER
[2018-03-16] MEDS ORDERED: PROMETHAZINE HCL INJ 25 MG in SODIUM CHLORIDE 0.9% 50ML 50 ML IVPB ONE (11:54)
[2018-03-16] MEDS ORDERED: SODIUM CHLORIDE 0.9% 50ML 50 ML ONE (12:07)
[2018-03-16] MEDS ORDERED: PROMETHAZINE HCL INJ 25 MG/ML VIAL ONE (12:07)
--- NOTE | 2018-03-16 13:48 | HP ---
SUPERVISING PHYSICIAN: Jaime Victor M.D. CHIEF COMPLAINT: Abdominal pain. HISTORY OF PRESENT ILLNESS: This is a 77 year-old female who came to the E. R. with nausea, vomiting, diarrhea and abdominal pain since yesterday. Apparently she was constipated which is a regular thing for her and she drank some prune juice. Since that time she proceeded to have multiple episodes of diarrhea associated with nausea and vomiting. For that reason she came to the Emergency Room. She denies any fever or chills. No recent weight loss or weight gain. Denies any other symptoms at this time. Her workup in the Emergency Room included a CT scan of the abdomen and pelvis which showed diverticulosis but no diverticulitis or any other signs of colitis at that time. White blood cell count was normal with no shift, but she did have a low sodium at 126 and looked to be volume depleted. Therefore she was referred for admission for volume depletion and monitoring for the abdominal pain. At time of examination, the patient was alert. States she feels "raw inside", but no actual abdominal pain. PAST MEDICAL HISTORY: 1. Diverticulosis. 2. Gastroesophageal reflux disease. 3. Osteoporosis. 4. Chronic neck and back pain. 5. Greater trochanter bursitis. 6. Breast cancer status post radiation therapy with right breast lumpectomy. 7. Generalized anxiety disorder. 8. Major depressive disorder. 9. Heart murmur. Ejection fraction of 65% and grade 1 diastolic dysfunction. PAST SURGICAL HISTORY: 1. Open reduction and internal fixation of right ankle. 2. Appendectomy. 3. Tonsillectomy. 4. L4 compression fracture repair via kyphoplasty. 5. Right breast lumpectomy. 6. Tubal ligation. 7. Left breast biopsy. 8. Hiatal hernia repair times 3. 9. Dorys fundoplication. CURRENT MEDICATIONS: 1. Alprazolam 0.5 mg p.o. daily and 1 mg at bedtime. 2. Vitamin D3 1,000 units p.o. daily. 3. Losartan 50 mg p.o. daily. 4. Olanzapine 5 mg p.o. daily. 5. Trazodone 100 mg p.o. at bedtime. 6. Venlafaxine 150 mg p.o. daily. ALLERGIES: DIAZEPAM. FAMILY HISTORY: Father at 54 of a myocardial infarction. Mother is and had osteoarthritis. SOCIAL HISTORY: She is a nondrinker, nonsmoker. No illicit drugs. She is and lives here in [place]. REVIEW OF SYSTEMS: CONSTITUTIONAL: No fever. No chills. No recent weight loss or weight gain. HEENT: No headaches, vision changes, ear pain, nasal congestion or throat pain. CARDIOVASCULAR: No chest pain, palpitations or peripheral edema. RESPIRATORY: No cough, hemoptysis or pleuritic chest pain. GASTROINTESTINAL: Positive for nausea, vomiting, diarrhea, constipation and abdominal pain. GENITOURINARY: No dysuria, frequency or flank pain. MUSCULOSKELETAL: No joint pain, joint swelling or muscle cramps. NEUROLOGIC: No syncope. No paresthesias. No seizures. ENDOCRINE: No polydipsia, polyuria or polyphagia. No heat or cold intolerance. PHYSICAL EXAMINATION: VITAL SIGNS: Blood pressure 130/75, heart rate 60, respiratory rate 20, temperature 97.9, oxygen saturation 98%. GENERAL: Ms. Carver is a 77 year-old female in no active distress currently. CHEST: Lungs are clear to auscultation bilaterally. CARDIOVASCULAR: Regular rate and rhythm. Normal S1 and S2. She has a systolic murmur noted as well. ABDOMEN: Soft. Positive bowel sounds. Diffuse mild tenderness to palpation but no rebound and no rigidity. GENITOURINARY: Exam is deferred. EXTREMITIES: With no significant edema. 2+ pulses. Capillary refill is less than 2 seconds. NEUROLOGIC: The patient is alert and oriented. LABORATORY: Labs as discussed in the History of Present Illness. ASSESSMENT: 1. Abdominal pain. 2. Constipation with subsequent diarrhea after drinking prune juice. 3. Volume depletion. 4. Hyponatremia secondary to #3. PLAN: At this time will provide volume repletion with normal saline. She did get a little bit in the Emergency Room but will resume this over here and recheck her labs in the morning. She states that the diarrhea slowed down so will hold off on giving anything to reverse it. She will likely be discharged tomorrow given improvement in her symptoms as well as improvement in her sodium. Early ambulation for DVT prophylaxis has been ordered. PPI for GI ulcer prophylaxis. [facility][id number] [facility]
[2018-03-16] MEDS ORDERED: IV SET AND CAP CHANGE INJ INJ SCH (15:00)
[2018-03-16] MEDS: SODIUM CHLORIDE 0.9% 1000ML 1,000 ML IVS PRN (15:14)
[2018-03-16] MEDS ORDERED: traZODone HCL 100 MG TAB PO ONE (19:33)
[2018-03-16] MEDS ORDERED: ALPRAZolam 0.5 MG TAB PO SCH (21:00)
[2018-03-16] MEDS ORDERED: traZODone HCL 50 MG TAB PO SCH (21:00)
[2018-03-16] MEDS ORDERED: traMADol HCL 50 MG TAB PO PRN (22:20)
[2018-03-16] MEDS: BENZOCAINE-MENTH LOZ (CEPACOL) 1 EA LOZ MT PRN (22:25)
[2018-03-17] MEDS: SODIUM CHLORIDE 0.9% 1000ML 1,000 ML IVS PRN (00:41)
[2018-03-17] MEDS: BENZOCAINE-MENTH LOZ (CEPACOL) 1 EA LOZ MT PRN (01:36)
[2018-03-17] MEDS ORDERED: VENLAFAXINE XR 75 MG CAP ONE (08:26)
[2018-03-17] MEDS ORDERED: LOSARTAN POTASSIUM 25 MG TAB ONE (08:26)
[2018-03-17] MEDS ORDERED: OLANZapine ODT 5 MG TAB ONE (08:27)
[2018-03-17] MEDS ORDERED: NON-FORMULARY MEDICATION 1 EA MIS (Losartan Potassium [Losartan Potassium] 50 MG) PO SCH (09:00)
[2018-03-17] MEDS ORDERED: VENLAFAXINE XR 75 MG CAP PO SCH (09:00)
[2018-03-17] MEDS ORDERED: OLANZapine ODT 5 MG TAB PO SCH (09:00)
[2018-03-17] MEDS ORDERED: NON-FORMULARY MEDICATION 1 EA MIS (Venlafaxine Hcl [Venlafaxine Hcl Er] 150 MG) PO SCH (09:00)
[2018-03-17] MEDS ORDERED: LOSARTAN POTASSIUM 25 MG TAB PO SCH (09:00)
[2018-03-17] MEDS ORDERED: OLANZAPINE 5 MG PO SCH (09:00)
[2018-03-17] MEDS ORDERED: ALPRAZolam 0.5 MG TAB PO SCH (09:00)
[2018-03-17] MEDS ORDERED: CHOLECALCIFEROL 2,000 IU TAB PO SCH (09:00)
[2018-03-17 10:20] VITALS: BP 144/79; TEMP 98.2; O2SAT 91
[2018-03-18] MEDS ORDERED: VENLAFAXINE XR 75 MG CAP PO SCH (09:00)
[2018-03-18] MEDS ORDERED: OLANZapine ODT 5 MG TAB PO SCH (09:00)
[2018-03-18] MEDS ORDERED: LOSARTAN POTASSIUM 25 MG TAB PO SCH (09:00)
--- NOTE | 2018-03-22 08:37 | DS ---
SUPERVISING PHYSICIAN: Ofelia Victor MD ADMISSION DIAGNOSIS: 1. Abdominal pain. 2. Constipation with subsequent diarrhea after drinking prune juice. 3. Volume depletion. 4. Hyponatremia secondary to #3. 5. Urinary tract infection, cultures pending. DISCHARGE DIAGNOSIS: 1. Abdominal pain secondary to constipation and laxative use including prune juice. 2. Diarrhea associated with drinking prune juice contributing to #1. 3. Volume depletion secondary to #1 and #2, resolved after IV fluids. 4. Hyponatremia secondary to #3, back to baseline with fluids. 5. Urinary tract infection, cultures pending, with the patient started in ciprofloxacin after talking to Dr. Medina. REASON FOR HOSPITALIZATION: This is a 77-year-old female who came to the Emergency Room with nausea, vomiting, diarrhea and abdominal pain since yesterday. Apparently she was constipated which is a regular thing for her and she drank some prune juice. Since that time she proceeded to have multiple episodes of diarrhea associated with nausea and vomiting. For that reason she came to the Emergency Room. She denies any fever or chills. No recent weight loss or weight gain. Denies any other symptoms at this time. Her workup in the Emergency Room included a CT scan of the abdomen and pelvis which showed diverticulosis but no diverticulitis or any other signs of colitis at that time. White blood cell count was normal with no shift, but she did have a low sodium at 126 and looked to be volume depleted. Therefore she was referred for admission for volume depletion and monitoring for the abdominal pain. At time of examination, the patient was alert. States she feels "raw inside", but no actual abdominal pain. LABORATORY: White count 5,400, hemoglobin 13.3, hematocrit 40.1, platelet count 231,000. Differential was within normal limits. Initial chemistry showed sodium 126, discharge was 135. Potassium was normal at 3.8 as well as carbon dioxide of 28. Initial serum osmolality was 251, discharge was 267. Liver functions were all within normal limits. Urinalysis showed trace of intact blood with positive nitrites with moderate amount of leukocyte esterase, 5 to 10 WBCs, 0 epithelials, 2+ bacteria. MICROBIOLOGY: Final urine culture results show E. coli that is pansensitive. HOSPITAL COURSE: Ms. Carver was admitted on 03/16/18 got hyponatremia and dehydration with abdominal pain secondary to diarrhea associated with her excessive prune juice consumption for constipation. She was given fluids, her diet was advanced and on the morning of discharge, she was feeling better. Her labs had normalized. Therefore, she was continued with outpatient management. She had no complaints of any dysuria at time of discharge. PLAN: Ms. Carver was discharged on 03/17/18 with instructions to followup with Dr. Medina on 03/19/18. She was to continue her home medications as previously prescribed and encourage fluids to prevent dehydration. She was told to advance her diet slowly to a regular diet as tolerated and to return to the hospital should she have any concerning symptoms. Diet at discharge to resume usual diet. Activities were to increase as tolerated. MEDICATIONS PRESCRIBED AT DISCHARGE: 1. Ciprofloxacin per Dr. Medina' office after culture results completed. DISPOSITION: The patient was discharged to the care of her family. Condition at discharge was stable and improved. [id number]
== END 2018-03-17 11:00 | disposition home or self-care (01) ==
LOC: ER 08:51 → UNDOADMOB 13:48 → MS 13:48
PROVIDERS: ADMIT Nurse Practitioner; ATTEND Nurse Practitioner Family
DX: E86.9 Volume depletion, unspecified (principal); E87.1 Hypo-osmolality and hyponatremia; K52.9 Noninfective gastroenteritis and colitis, unspecified; K59.09 Other constipation; K21.9 Gastro-esophageal reflux disease without esophagitis; K57.30 Diverticulosis of large intestine without perforation or abscess without bleeding; M81.0 Age-related osteoporosis without current pathological fracture; G89.29 Other chronic pain; F41.1 Generalized anxiety disorder; F32.9 Major depressive disorder, single episode, unspecified; K44.9 Diaphragmatic hernia without obstruction or gangrene; Z79.899 Other long term (current) drug therapy; Z88.8 Allergy status to other drugs, medicaments and biological substances; Z85.3 Personal history of malignant neoplasm of breast; Z92.3 Personal history of irradiation
CPT/HCPCS: 96361 ×2; 96374; 96375; J3010; J2405; J2550; J7030 ×3; A4216; 80048 ×2; 87086; 36415 ×2; 87077; 87186; 81001; 80076; 85025; 83690; 74177; 99285

== ENCOUNTER → 2018-03-22 | Outpatient (CLI) | payer MEDICARE | LOC: GMAJ 17:18 | PROVIDERS: ATTEND Family Medicine | DX: R53.82 Chronic fatigue, unspecified (principal) ==

== ENCOUNTER 2018-09-30 16:29 | Emergency (ER) | payer MEDICARE ==
--- NOTE | 2018-09-30 17:00 | ED.PDOC ---
History of Present Illness - General Chief Complaint: Neuro Symptoms/Deficits Stated Complaint: TINGLING IN RIGHT ARM WITH RADIATION TO SHOULDER Time Seen by Provider: 09/30/18 16:45 Source: patient Exam Limitations: no limitations - History of Present Illness Initial Comments: Martha Carver 77 y/o female came to ER with tingling sensation on right hand for the last several months which comes and goes then today went up to her right shoulder back of head and left upper extremities.Has also dull headache lasting for about several minutes but gone on arrival at ER.Denies slurred speech,weakness,facial droop or difficulty swallowing.No medical attention was done for her tingling on her right hand recently. Timing/Duration: 4-6 hours, intermittent Severity: moderate Improving Factors: cold therapy, eating Associated Symptoms: other - see hpi Allergies/Adverse Reactions: Allergies Diazepam [From Valium] Allergy (Verified 09/30/18 16:45) Home Medications: Ambulatory Orders ALPRAZolam [Xanax] 0.5 mg PO DAILY 09/07/16 ALPRAZolam [Xanax] 1 mg PO BEDTIME 09/07/16 traZODone HCL [Desyrel] 100 mg PO BEDTIME 09/07/16 Cholecalciferol [D3 2000] 1,000 unit PO DAILY 09/29/16 Losartan Potassium 50 mg PO DAILY 03/16/18 Olanzapine 5 mg PO DAILY 03/16/18 Venlafaxine HCl [Venlafaxine HCl ER] 150 mg PO DAILY 03/16/18 Nitrofurantoin Monohydrate Mac [Macrobid] 100 mg PO BID 10 Days #20 capsule 09/30/18 Review of Systems - Review of Systems Constitutional: States: no symptoms reported EENTM: States: no symptoms reported Respiratory: States: no symptoms reported Cardiology: States: no symptoms reported Gastrointestinal/Abdominal: States: no symptoms reported Genitourinary: States: no symptoms reported Musculoskeletal: States: no symptoms reported Skin: States: no symptoms reported Neurological: States: see HPI, tingling Endocrine: States: no symptoms reported All other Systems: Reviewed and Negative, No Change from Baseline Past Medical History (General) - Patient Medical History Hx Seizures: No Hx Stroke: No Hx Asthma: No Hx of COPD: No Hx Cardiac Disorders: No Hx Congestive Heart Failure: No Hx Pacemaker: No Hx Hypertension: No Hx Diabetes: No Hx Gastroesophageal Reflux: Yes - Hiatal hernia Hx Cancer: Yes - BREAST Hx Hepatitis C: No Hx MRSA: No Surgical History: appendectomy, tonsillectomy - Vaccination History Hx Tetanus, Diphtheria Vaccination: No Hx Influenza Vaccination: No Hx Pneumococcal Vaccination: No Immunizations Up to Date: No - Social History Hx Tobacco Use: No Hx Chewing Tobacco Use: No Hx Alcohol Use: No Hx Substance Use: No Hx Substance Use Treatment: No Hx Depression: No Hx Physical Abuse: No Hx Emotional Abuse: Yes Hx Suspected Abuse: No - Female History Patient is a Female of Child Bearing Age (10 -59 yrs old): No Patient : No Family Medical History - Family History Mother Family History: No Known Living Status: Cause of : old age Hx Family Asthma: No Hx Family Congestive Heart Failure: No Hx Family Hypertension: No Hx Family Stroke: No Hx Cardiac Disease: Yes - dad Hx Family Diabetes: Yes Hx Family Cancer: No Physical Exam - Physical Exam General Appearance: Alert, Comfortable, No apparent distress Eye Exam: bilateral normal Ears, Nose, Throat: hearing grossly normal, normal ENT inspection, normal pharynx Neck: non-tender, full range of motion, supple, normal inspection Respiratory: chest non-tender, lungs clear, normal breath sounds, no respiratory distress Cardiovascular/Chest: normal peripheral pulses, regular rate, rhythm, no murmur Peripheral Pulses: radial,right: 2+, radial,left: 2+ Gastrointestinal/Abdominal: non tender, soft, no organomegaly Back Exam: normal inspection, no CVA tenderness, no vertebral tenderness Extremity: no pedal edema, no calf tenderness Neurologic: no motor/sensory deficits, alert, oriented x 3 Skin Exam: normal color, warm/dry Lymphatic: no adenopathy Progress - Progress Progress: 09/30/18 17:11 Vital Signs - 8 hr 09/30/18 16:46 Temperature 98.6 F Pulse Rate [ 84 MONITOR] Respiratory 18 Rate Blood Pressure 140/67 [LA] O2 Sat by Pulse 95 Oximetry - Results/Orders Results/Orders: 09/30/18 17:10 Urine Culture Stat 09/30/18 17:15 EKG STAT Laboratory Results - last 24 hr 09/30/18 09/30/18 17:10 17:10 WBC 5.2 RBC 4.31 Hgb 12.7 Hct 38.2 MCV 88.7 MCH 29.4 MCHC 33.1 RDW 14.1 Plt Count 211 MPV 8.0 Absolute Neuts (auto) 3.00 Absolute Lymphs (auto) 1.50 Absolute Monos (auto) 0.60 Absolute Eos (auto) 0.10 Absolute Basos (auto) 0.00 Neutrophils % 57.5 Lymphocytes % 27.9 Monocytes % 11.6 H Eosinophils % 2.2 Basophils % 0.8 PT 9.7 INR 0.97 PTT (SP) 23.2 Sodium 128 L Potassium 4.4 Chloride 96 L Carbon Dioxide 24 Anion Gap 12.4 BUN 11 Creatinine 0.76 BUN/Creatinine Ratio 14.5 Random Glucose 110 H Serum Osmolality 257.1 L Calcium 8.9 Magnesium 2.2 Total Bilirubin 0.4 Direct Bilirubin 0.2 Indirect Bilirubin 0.2 AST 32 ALT 18 Alkaline Phosphatase 61 Creatine Kinase 163 H CK-MB (CK-2) 2.8 CK-MB (CK-2) % Not Reportable Troponin I < 0.02 Serum Total Protein 7.1 Albumin 3.7 TSH 2.32 Urine Color Yellow Urine Appearance Cloudy Urine pH 5.5 Ur Specific [place] 1.015 Urine Protein Negative Urine Glucose (UA) Negative Urine Ketones Negative Urine Blood Small H Urine Nitrite Positive H Urine Bilirubin Negative Urine Urobilinogen 0.2 Ur Leukocyte Esterase Moderate H Urine RBC 0-1 Urine WBC >100 H Ur Epithelial Cells 1-3 Urine Bacteria 3+ H Urine Mucus Trace Discuss alltest results with patient - EKG/XRAY/CT EKG: Sinus, nonspecific ST T wave Chg Comments: HR-67;1o av block-SD -232ms CT Ordered: Yes - head-no acute abnormalities;C-spine;Deg disc changes Departure - Departure Clinical Impression: Tingling of both upper extremities, Hyponatremia Urinary tract infection Qualifiers: Urinary tract infection type: site unspecified Hematuria presence: without hematuria Qualified Code(s): N39.0 - Urinary tract infection, site not specified Time of Disposition: 18:33 Disposition: Discharge to Home or Self Care Condition: Fair Departure Forms: ED Discharge - Pt. Copy, Patient Portal Self Enrollment Instructions: Hyponatremia (DC), Hyponatremia, Urinary Tract Infection, Adult (DC), Urinary Tract Infections in Adults Activity: other - limit fluid intake 4 glasses/day Referrals: Blanco Medina III, MD [Primary Care Provider] - 1-2 Weeks Prescriptions: Nitrofurantoin Monohydrate Mac [Macrobid] 100 mg PO BID 10 Days #20 capsule Home Medications: Ambulatory Orders ALPRAZolam [Xanax] 0.5 mg PO DAILY 09/07/16 ALPRAZolam [Xanax] 1 mg PO BEDTIME 09/07/16 traZODone HCL [Desyrel] 100 mg PO BEDTIME 09/07/16 Cholecalciferol [D3 2000] 1,000 unit PO DAILY 09/29/16 Losartan Potassium 50 mg PO DAILY 03/16/18 Olanzapine 5 mg PO DAILY 03/16/18 Venlafaxine HCl [Venlafaxine HCl ER] 150 mg PO DAILY 03/16/18 Nitrofurantoin Monohydrate Mac [Macrobid] 100 mg PO BID 10 Days #20 capsule 09/30/18 Additional Instructions: May take over the counter salt tablets one tablet daily;Follow up with primary Md 04 October 2018 for recheck;continue with home medications
[2018-09-30] MEDS ORDERED: SODIUM CHLORIDE 0.9% 500ML 500 ML IVS ONE (17:02)
--- NOTE | 2018-09-30 17:49 | CT ---
EXAM DESCRIPTION: Head CLINICAL HISTORY: headache/tingling COMPARISON: March 16, 2018 TECHNIQUE: Non contrast cranial CT This exam was performed according to our departmental dose-optimization program, which includes automated exposure control, adjustment of the mA and/or kV according to patient size and/or use of iterative reconstruction technique. FINDINGS: Age-appropriate atrophic changes are present. Modest prominence of the cortical sulci and subarachnoid spaces and mild prominence of the ventricular system and sylvian fissure particularly on the left side is present. The third and fourth ventricles are midline. No mass effect or midline shift is seen. The bony calvarium is intact. No subarachnoid or parenchymal or subdural hemorrhage or fluid collection noted. Very little white matter disease is noted. Large areas of gliosis or encephalomalacia are not apparent. IMPRESSION: 1. Age-related atrophy with no acute intracranial process noted. Electronically signed by: Chuckie Villagomez MD 09/30/2018 5:47 PM CDT
--- NOTE | 2018-09-30 17:56 | CT ---
EXAM DESCRIPTION: Cervical Spine CLINICAL HISTORY: tingling COMPARISON: None Available. TECHNIQUE: Cervical CT is performed with thin-section axial imaging. MPRs are created and reviewed as well. This exam was performed according to our departmental dose-optimization program, which includes automated exposure control, adjustment of the mA and/or kV according to patient size and/or use of iterative reconstruction technique. FINDINGS: Straightening of the cervical spine is present from C2 through C6 with degenerative disc narrowing at the C5-6 level and advanced degenerative arthritis anteriorly at the C1-2 articulation with hypertrophic soft tissue changes posterior to the odontoid noted. Compromise of the anterior foramen magnum but without significant stenosis is present. No bony destructive changes are noted. No vertebral collapse is evident. Mild annular prominence and mild facet arthropathy at C2-3 is present with adequate spinal canal. Mild annular bulge at C3-4 with adequate spinal canal and right neural foramen and modest compromise of the left neural foramen from left-sided facet arthropathy noted. At C4-5 adequate spinal canal with symmetric facet arthropathy and mild narrowing of note both neural foramina. The large lateralizing herniation is not apparent. At C5-6 mild disc space narrowing is present with adequate bony canal and right neural foramen with mildly narrowed left neural foramen from uncinate process and facet hypertrophic changes. At C6-7 the bony canal is adequate. The disc contour is poorly visualized secondary to beam hardening artifact from the shoulders. At C7-T1 bony spinal canal is adequate in the neural foramina appear adequate. On the left moderate facet arthropathy at all levels with relative sparing at C5-6 and C6-7 noted. On the right less severe changes are evident with the hypertrophic facet arthropathy most prominent at C3-4 and C4-5 and to a lesser extent other levels. IMPRESSION: Loss of normal cervical lordosis through the mid cervical spine with adequate bony canal throughout. Mild annular bulges at multiple levels with no large lateralizing herniation noted. Predominant left-sided foraminal narrowing from facet arthropathy is noted at several levels as described above. Advanced degenerative changes anteriorly at C1-2 with hypertrophic soft tissue changes but without severe compromise of the foramen magnum. Electronically signed by: Chuckie Villagomez MD 09/30/2018 5:53 PM CDT
[2018-09-30] MEDS ORDERED: NITROFURANTOIN MONOHYDRATE MAC 100 MG CAP PO ONE (18:28)
[2018-09-30 18:48] VITALS: BP 174/84; TEMP 97.6; O2SAT 94
== END 2018-09-30 18:45 | disposition home or self-care (01) ==
LOC: ER 16:29
DX: R20.2 Paresthesia of skin (principal); N39.0 Urinary tract infection, site not specified; E87.1 Hypo-osmolality and hyponatremia; I44.0 Atrioventricular block, first degree; R51 Headache; K21.9 Gastro-esophageal reflux disease without esophagitis; Z90.49 Acquired absence of other specified parts of digestive tract; Z85.3 Personal history of malignant neoplasm of breast; Z88.8 Allergy status to other drugs, medicaments and biological substances
CPT/HCPCS: 36415; 70450; 72125; 80048; 80076; 81001; 82550; 82553; 84443; 84484; 85025; 85610; 85730; 87077; 87086; 87186; 93005; J7040

== ENCOUNTER → 2019-01-31 | Outpatient (CLI) | payer MEDICARE | LOC: GMAL 10:41 | PROVIDERS: ATTEND Family Medicine | DX: R53.82 Chronic fatigue, unspecified (principal); I10 Essential (primary) hypertension; E78.49 Other hyperlipidemia ==

== ENCOUNTER → 2019-05-10 | Outpatient (CLI) | payer MEDICARE | LOC: GMAL 10:36 | PROVIDERS: ATTEND Family Medicine | DX: E03.8 Other specified hypothyroidism (principal) ==

== ENCOUNTER → 2019-06-16 | Outpatient (CLI) | payer MEDICARE | DX: Z12.31 Encounter for screening mammogram for malignant neoplasm of breast (principal); R92.8 Other abnormal and inconclusive findings on diagnostic imaging of breast ==

== ENCOUNTER → 2019-07-27 | Outpatient (CLI) | payer MEDICARE ==
--- NOTE | 2019-07-28 16:58 | US ---
EXAM DESCRIPTION: Breast,Left: Ultrasound. CLINICAL HISTORY: 78 yearsFemaleABNORMAL MAMMO COMPARISON: Bilateral screening digital breast tomosynthesis June 16, 2019. TECHNIQUE: Transcutaneous scanning of the left breast utilizing gage-scale and Doppler modes. Scanning performed by the inside plant supervisor ; observation by Dr. Sears. FINDINGS: Scanning of the upper outer quadrant anterior left breast. Mostly fatty echotexture with minimal fibroglandular tissues. Partially circumscribed hypoechoic mass with eccentric echogenicity. Wider than tall orientation. Nonvascular. Mostly posterior acoustic shadowing. No distinct cyst or large calcifications. No overlying skin changes. IMPRESSION: Probable lymph node . BI-RADS CATEGORY: 3 - PROBABLY BENIGN. Management: Short interval (6-month) left breast diagnostic digital tomosynthesis along with directed left breast ultrasound.. The FINDINGS and the FOLLOW-UP plan were reviewed in person with the patient after the examination. Written communication explaining the IMPRESSION and FOLLOW-UP will be mailed to the patient and referring care provider. Electronically signed by: Dc Sears MD 07/28/2019 4:57 PM CDT
== END ==
LOC: MAMMO 10:00
PROVIDERS: ATTEND Family Medicine
DX: R92.8 Other abnormal and inconclusive findings on diagnostic imaging of breast (principal)

== ENCOUNTER → 2019-08-16 | Outpatient (CLI) | payer MEDICARE | LOC: GMAL 10:38 | PROVIDERS: ATTEND Family Medicine | DX: D51.3 Other dietary vitamin B12 deficiency anemia (principal); E55.9 Vitamin D deficiency, unspecified; I10 Essential (primary) hypertension; Z79.899 Other long term (current) drug therapy ==

== ENCOUNTER → 2019-08-26 | Outpatient (CLI) | payer MEDICARE ==
--- NOTE | 2019-08-26 14:47 | CT ---
EXAM DESCRIPTION: Chest w/wo Contrast CLINICAL HISTORY: 78 years Female, PLEURAL EFFUSION TECHNIQUE: This exam was performed according to our departmental dose-optimization program, which includes automated exposure control, adjustment of the mA and/or kV according to patient size and/or use of iterative reconstruction technique. COMPARISON: June 02, 2019 FINDINGS: No axillary adenopathy. Normal caliber thoracic aorta. No pericardial effusion. No evidence of acute process in the visualized upper abdomen. No mediastinal adenopathy. No pulmonary embolism. No pneumothorax. Posttreatment change in the anterior right lung, similar. Moderate right layering pleural effusion with adjacent atelectasis/consolidation. Scattered bilateral solid noncalcified sub-6 mm pulmonary nodules bilaterally, all of which are stable to most recent comparison examination June 02, 2019. No acute or suspicious osseous abnormality. Scattered degenerative changes present. IMPRESSION: 1. Moderate right pleural effusion with adjacent atelectasis/consolidation. 2. Numerous bilateral solid noncalcified sub-6 mm pulmonary nodules bilaterally. According to the most recent Fleischner Society Pulmonary Nodule Guidelines ( DOI: http://dx.doi.org/10.1148/radiol.7227396713 ), in the absence of risk factors, for multiple solid nodules measuring smaller than 6 mm, no CT follow-up is required. If the patient is considered high-risk for bronchogenic carcinoma, 1-year CT follow-up or other follow-up intervals according to size and risk. *High-risk features include: history of smoking, exposure to other carcinogens, emphysema, fibrosis, upper lobe location, family history of lung cancer. Electronically signed by: Trey Garcia MD 08/26/2019 2:45 PM CDT
== END ==
LOC: CT 09:00
PROVIDERS: ATTEND Family Medicine
DX: J90 Pleural effusion, not elsewhere classified (principal); J98.11 Atelectasis; R91.8 Other nonspecific abnormal finding of lung field

== ENCOUNTER → 2019-10-24 | Outpatient (CLI) | payer MEDICARE ==
--- NOTE | 2019-10-24 11:33 | CT ---
EXAM DESCRIPTION: Chest w/o Contrast : Computed Tomography. CLINICAL HISTORY: 78 years Female PLEURAL EFFUSION IN OTHER CONDITION CLASSIFIED ELSEWHERE COMPARISON: Chest CT scan August 25. TECHNIQUE: Spiral-axial scans at 5 x 5 mm intervals through the lungs and thorax without IV contrast. 2.5 x 2.5 mm lung algorithm axial reconstructions. : Sagittal 2.0 Mm reconstructions. No adverse reactions. Total Exam DLP: 469 mGy-cm. This exam was performed according to our departmental dose-optimization program which includes automated exposure control, adjustment of the mA and/or kV according to patient size and/or use of iterative reconstruction technique; to reduce radiation dose to as low as reasonably achievable (ALARA). Nodule measurements under 10 mm are given as mean value of 3 axes diameters. FINDINGS: Lungs and large airways and pleural spaces: Moderate chronic right pleural effusion extending from the base to the posterior right apex of the hemithorax. No left effusion. No pneumothorax or hydrothorax bilaterally. At least 4 groundglass nodules less than 3 mm in diameter in the right upper lobe on series #4, image 25 are stable from the prior study. Similar subpleural nodules in size and density more inferiorly in the right upper lobe. Atelectasis in the right middle lobe with thickening of the fissure and pleural parenchymal scarring as well as stable honeycomb density abutting the pleura in the lateral subpleural right middle lobe. Multiple subpleural and pleural 3 to 4 mm groundglass nodules along with atelectasis in the right lower lobe are interpreted to be stable with no new abnormal nodules. Air bronchograms indicating an atelectatic segment in the compressed right lung base. Stable solid subpleural 5 mm nodule right lower lobe on image 4/68. Subpleural in parenchymal groundglass nodules again noted in the left upper and lower lobes. Left apical pleural thickening. Subpleural dense 5.5 mm nodule stable 1 image 4/46, which may be a perifissural nodule abutting the left major fissure. Stable solid subpleural nodule versus pleural thickening posterior recess of the left lower lobe on image 4/92. Mediastinum and Cherelle: Evaluation limited due to lack of IV contrast normal size nodes with no dominant soft tissue mass. Great vessels and Heart: Evaluation limited due to lack of IV contrast. Chronic pericardial thickening or effusion stable. Soft tissues of neck base, axillae, and chest wall: Evaluation limited due to lack of IV contrast. Negative. Upper abdomen: No free air or free fluid. Fatty pancreas. No free air or free fluid. Small spleen.. Osseous structures: Nonhelical right lateral ninth rib fracture. Old healed left lateral rib fractures. IMPRESSION: 1. Large chronic right pleural effusion. 2. Multiple bilateral parenchymal and subpleural groundglass nodules 4 mm or less, too numerous to count. Stable since the prior study. Subpleural or perifissural 5.5 mm nodule left upper lobe. Stable solid subpleural 5 mm nodule right lower lobe. No mediastinal or hilar adenopathy. 3. Consider follow-up chest CT scan in 6-12 month interval to document stability of nodules. Electronically signed by: Dc Sears MD 10/24/2019 11:31 AM CDT
== END ==
LOC: CT 10:00
PROVIDERS: ATTEND Family Medicine
DX: J91.8 Pleural effusion in other conditions classified elsewhere (principal); R91.8 Other nonspecific abnormal finding of lung field